=== PATIENT | female | born 1990 | race Caucasian/White ===

== ENCOUNTER 2017-01-20 09:31 | Inpatient (IN) | payer OTHER ==
--- NOTE | 2017-01-15 11:49 | HP ---
DATE OF ADMISSION: 02/10/2017 DATE OF DICTATION: 12/29/2016 DATE OF SURGERY: 02/10/2017 BRIEF HISTORY: This is a 26-year-old female whose history dates back to 2010. At which point, she underwent an open umbilical hernia repair by, she thinks, Dr. Hogue. At that time, she thinks she had mesh placed as well. At that initial presentation, she had a hernia above the umbilicus that she went to see the physician for. However, this was not addressed. This area that she initially had in 2010, that was dilated is much worse now, and she has pain. Patient denies nausea, vomiting. No change in bowel habits. She makes it very clear that this has gotten larger. PAST MEDICAL HISTORY: No coronary disease, hypertension, or diabetes. PAST SURGICAL HISTORY: As mentioned above. MEDICATIONS: None. ALLERGIES: None. SOCIAL HISTORY: Patient does not smoke. She drinks socially. PHYSICAL EXAMINATION: Lungs: Clear. Heart: Regular rhythm. Abdomen: Soft, nontender, nondistended. She has a -healed scar in the superior aspect of the umbilicus. On exam, she also has a hernia above this by 3 fingerbreadths. It is very clear and approximately the size of a golf ball. It is nontender on exam. There are no overlying skin changes, and it is not reducible. The actual defects are not truly appreciated due to its chronically-incarcerated nature. IMPRESSION/PLAN: Chronically-incarcerated, recurrent incisional hernia. This is a 26-year-old female who now has a recurrence with incarceration. It is chronic, and it is causing her discomfort now. She wishes to have this repaired. The indications, alternatives, and complications of the repair have been discussed with this patient. We will plan for an open repair with possible component separation as needed depending on the findings at surgery. Patient will have mesh placed at the time of surgery as well. CHRISS MATHIAS M.D. [id number] cc: Ramona Abad MD, [place], [place]
[2017-01-19 12:48] VITALS: BMI 25.9
[2017-01-20] MEDS ORDERED: DEXAMETHASONE SOD PHOSPHATE/PF 10 MG/ML SDV ONE (10:29)
[2017-01-20] MEDS ORDERED: BUPIVACAINE HCL/PF 0.25% (2.5MG/ML) 10 ML VIAL ONE (10:29)
[2017-01-20] MEDS ORDERED: MIDAZOLAM HCL 2 MG/2 ML SINGLE DOSE VIAL ONE ×2 (10:32)
[2017-01-20] MEDS ORDERED: ceFAZolin SODIUM 1 GM VIAL ONE (11:11)
[2017-01-20] MEDS ORDERED: LEVOFLOXACIN 500 MG IVPB 100 ML IVPB ONE (11:11)
[2017-01-20] MEDS ORDERED: LIDOCAINE HCL/PF 2% SDV 5ML VIAL ONE (11:54)
[2017-01-20] MEDS ORDERED: PROPOFOL 20 ML ONE (11:55)
[2017-01-20] MEDS ORDERED: ROCURONIUM BROMIDE 50 MG/5 ML VIAL ONE (11:55)
[2017-01-20] MEDS ORDERED: ceFAZolin SODIUM 1 GM VIAL IVPB ONE (12:10)
[2017-01-20] MEDS ORDERED: ONDANSETRON 4 MG/2 ML VIAL ONE ×2 (12:30→13:27)
[2017-01-20] MEDS ORDERED: DEXAMETHASONE SOD PHOSPHATE 4 MG/1 ML VIAL ONE ×2 (12:30→13:27)
[2017-01-20] MEDS ORDERED: GLYCOPYRROLATE 0.2 MG/1 ML VIAL ONE (13:27)
[2017-01-20] MEDS ORDERED: NEOSTIGMINE METHYLSULFATE 0.5 MG/ML - 10 ML MDV ONE (13:27)
[2017-01-20] MEDS ORDERED: oxyCODONE HCL 5 MG TABLET PO PRN (13:30)
[2017-01-20] MEDS ORDERED: ACETAMINOPHEN 325 MG TABLET (FP) PO PRN (13:30)
[2017-01-20] MEDS ORDERED: morphine CARPU-JECT 4 MG/1 ML DISP.SYRIN IVPB PRN (13:30)
[2017-01-20] MEDS ORDERED: D5-1/2NS+20 MEQ KCL - 1,000 ML IV SCH (13:30)
[2017-01-20] MEDS: IBUPROFEN 800 MG/8 ML IJ IVPB PRN (14:20)
[2017-01-20] MEDS ORDERED: ONDANSETRON 4 MG/2 ML VIAL IVPUSH PRN (14:27)
[2017-01-20] MEDS ORDERED: LACTATED RINGERS SOLUTION 1,000 ML IV SCH (14:30)
[2017-01-21] MEDS: IBUPROFEN 800 MG/8 ML IJ IVPB PRN (08:15)
[2017-01-21 09:34] VITALS: BP 109/57; PULSE 69; TEMP 98.8
[2017-01-21] MEDS ORDERED: PANTOPRAZOLE SODIUM 100 ML IVPB SCH (10:00)
[2017-01-21] MEDS ORDERED: ENOXAPARIN NA (PORCINE) 40 MG/0.4 ML DISP.SYRIN SQ SCH (10:00)
--- NOTE | 2017-01-21 10:04 | OP ---
DATE OF OPERATION: 01/20/2017 PREOPERATIVE DIAGNOSIS: Recurrent incarcerated ventral hernia, a complex, chronically incarcerated ventral hernia. POSTOPERATIVE DIAGNOSIS: Recurrent incarcerated ventral hernia, a complex, chronically incarcerated ventral hernia. PROCEDURE: Repair of recurrent ventral hernia (incarcerated) with mesh, repair of complex, bilateral component separation. SURGEON: Darren Simpson MD SCHOLASTIC APTITUDE TEST GRADER: Dino Campbell DO ANESTHESIA: Karyna Prince MD (general), ESTIMATED BLOOD LOSS: Minimal. SPECIMEN: None. INDICATIONS/PROCEDURE: This is a 26-year-old female who in 2010 underwent a ventral hernia repair. Following repair, she was still noted to have a lump in the upper abdomen. She was told that this was postoperative swelling. Over the ensuing six years, the lump has gotten significantly larger. Now, she has pain in the area. On physical examination, she had a recurrent ventral hernia, incisional hernia, she also has a complex, chronically incarcerated ventral hernia. She is now here for the above procedure. Patient was identified and appropriately positioned on the operating room table. After placement of general anesthesia, the abdomen was prepped and draped in the usual sterile fashion with ChloraPrep. A midline incision was made deep in the subcutaneous tissue. The incarcerated complex hernia was identified, dissected free down to the level of the fascia. The fascial ring was then circumscribed. She was also noted to have a chronically incarcerated recurrent incisional hernia. The skin overlying this hernia was then , and the flap was subsequently created. The fascial bridge between the two hernias was approximately 2 cm. The bridge was divided, and one large defect was created at this point. Next, the fascia at the rectus muscle on the right was identified. The muscle divided on the posterior sheath. The posterior sheath was subsequently created with blunt dissection down to the level of the transversus. The transversus was from the rectus attachments along with the oblique attachments with the cautery. This was done approximately 4 inches above and below the actual defect. A similar technique was used on the left side. On the left side, the retrorectus space was identified and entered in a similar fashion by dividing the posterior sheath. The space was then subsequently developed with blunt dissection out laterally. The transversus muscle just medial to the perforating vessels was subsequently scored at this level above and below the actual defect by 4inches. The transversus was freed and from the obliques and rectus muscle. A 15 x 15 piece of ProGrip was then placed into the space, the retrorectus space, and then anchored with several interrupted AbsorbaTack sutures. The mesh was irrigated, the operative field examined, noted to be hemostatic. The fascia overlying the mesh was then reapproximated with interrupted No. 1 PDS suture. The subcutaneous space was irrigated, and the dermis reapproximated with interrupted inverted 3-0 Vicryl sutures, and the skin closed with a 4-0 subcuticular Biosyn followed by Dermabond. At the conclusion of the case, sponge and instrument counts were correct. ATTESTATION: Brief operative note handwritten on preprinted form. [facility] queried prior to giving any narcotics. Hetal VALLEJO [id number] cc: Dr. Ramona Abad, [facility].
--- NOTE | 2017-01-21 10:39 | DS ---
DATE OF ADMISSION: 01/20/2017 DATE OF DISCHARGE: 01/21/2017 ADMITTING DIAGNOSIS: Complex incarcerated incisional hernia. DISCHARGE DIAGNOSIS: Complex incarcerated incisional hernia. BRIEF HISTORY: This is a 26-year-old female who was admitted to [facility] on January 20 for surgical management of a complex incarcerated incisional hernia. Please reference Dr. King operative report for details, but essentially, she underwent a repair of this hernia with mesh utilizing component separation. She was admitted to the hospital postoperatively. She did well. She has been discharged home today on January 21. She is tolerating diet, voiding and ambulating, and her pain is controlled with oral narcotics. She will be discharged home with a prescription for Percocet which she will take as needed. She also can take [id number] ibuprofen with Prilosec, as well. She is okay to shower. She will not lift anything more than 20 pounds. She will likely take off two weeks from work. She will follow with Dr. Simpson in approximately two weeks time for her postoperative check. DO ANTONIETTA RINCON/[id number]
== END 2017-01-21 10:00 | disposition home or self-care (01) | DRG 355 ==
LOC: JASU-SURG 09:31 → JSAMEDAYSX 09:32 → J6S 15:30
PROVIDERS: ADMIT Surgery; ATTEND Surgery
PROC: 0WUF0JZ Supplement Abdominal Wall with Synthetic Substitute, Open Approach (ICD-10-PCS; principal; 2017-01-20 11:00)
DX: K43.0 Incisional hernia with obstruction, without gangrene (principal)
CPT/HCPCS: 84703; 94010; 94760